=== PATIENT | female | born 1975 | race Asian ===

== ENCOUNTER → 2024-03-01 12:17 | Outpatient (REF) | payer BC, SELFPAY | LOC: WDC 12:17 | PROVIDERS: ATTENDING PHYSICIAN Obstetrics & Gynecology; FAMILY PHYSICIAN Internal Medicine | DX: Z12.31 Encounter for screening mammogram for malignant neoplasm of breast (principal) | CPT/HCPCS: 77063; 77067 ==

== ENCOUNTER 2025-02-15 06:20 | Day surgery (SDC) | payer BC, SELFPAY ==
[2025-02-15 07:36] LABS: Glucose - Point of Care 92 mg/dl (70-99)
== END 2025-02-15 09:14 | disposition home or self-care (01) ==
LOC: GI 06:20
PROVIDERS: ATTENDING PHYSICIAN Internal Medicine Gastroenterology; FAMILY PHYSICIAN Internal Medicine
DX: Z12.11 Encounter for screening for malignant neoplasm of colon (principal); K64.8 Other hemorrhoids; K64.4 Residual hemorrhoidal skin tags; K63.5 Polyp of colon
CPT/HCPCS: 45380; 82962; 88305

== ENCOUNTER → 2025-03-02 09:22 | Outpatient (REF) | payer BC, SELFPAY | LOC: WDC 09:22 | PROVIDERS: ATTENDING PHYSICIAN Obstetrics & Gynecology; FAMILY PHYSICIAN Internal Medicine | DX: Z12.31 Encounter for screening mammogram for malignant neoplasm of breast (principal) | CPT/HCPCS: 77063; 77067 ==